=== PATIENT | female | born 1995 | race Caucasian/White ===

== ENCOUNTER 2018-02-18 19:38 | Emergency (ER) | payer BC ==
[~2018-02-18] VITALS: Ht 175.3 cm; Wt 68.2 kg
[~2018-02-18 19:38] MED LIST: ALDACTONE 25MG25 M1; PROBIOTIC FORMU1 CAP PO; VITAMIN D31000 I1 PO
[2018-02-18 19:40] VITALS: BP 136/85; PULSE 86; TEMP 98.9
[2018-02-18] MEDS ORDERED: NAPROSYN500 MG PO (19:49)
== END 2018-02-18 20:14 | disposition home or self-care (01) ==
LOC: COL.ER 19:38
DX: S61.216A Laceration without foreign body of right little finger without damage to nail, initial encounter (principal); W25.XXXA Contact with sharp glass, initial encounter; Y92.009 Unspecified place in unspecified non-institutional (private) residence as the place of occurrence of the external cause